=== PATIENT | male | born 1945 | race African-American/Black ===

== ENCOUNTER → 2017-01-16 | Outpatient (CLI) | payer OTHER ==
--- NOTE | 2017-01-16 10:10 | RAD ---
Renal ultrasound 01/16/2017 at 0956 hours Indication: Acute renal failure Comparison: None available Technique: Sonographic imaging of the kidneys was performed utilizing grayscale and color Doppler. Findings: Right kidney measures 10.1 x 5.9 x 6.5 cm. Left kidney measures 11.6 x 4.5 x 5.8 cm. There is normal renal echotexture. No hydronephrosis. No contour deforming renal mass. No renal calculi are identified. Urinary bladder is within normal limits given degree of distention. Impression: No evidence for obstructive uropathy.
== END | disposition home or self-care (01) ==
LOC: US 09:45
PROVIDERS: ATTEND Internal Medicine Nephrology
DX: N17.9 Acute kidney failure, unspecified (principal)
CPT/HCPCS: 76770

== ENCOUNTER 2020-11-16 13:03 | Observation (INO) | payer MEDICARE, OTHER ==
[~2020-11-16] VITALS: Ht 167.6 cm; Wt 85.6 kg
[~2020-11-16 13:03] MED LIST: AMLO-187 PO; ASPI81TA50 PO; HYDR-2145 PO; MULT-445 PO; PRAV40TA2 PO
--- NOTE | 2020-11-16 13:25 | ED.ADGEN ---
General Adult EDM: Chief Complaint: SHORTNESS OF BREATH HPI: HPI: Patient is a 75-year-old male who arrives ambulatory to the emergency department complaining of progressive difficulty breathing since Sunday night. Patient reports initially he had nasal congestion as well as a dry cough and states it is since moved into his chest. Upon arrival the patient has saturations in the mid to high 80s. Upon further questioning the patient states he has smoked intermittently over the past several years however he does not smoke with regularity. The patient states now in addition to having a productive cough as well as shortness of air he has some chest tightness. He states he did complete the vaccine series for coronavirus in September of this year. He denies any fevers or underlying lung disease otherwise. He is awake, alert and uncomfortable appearing Review of Systems: Review of Systems: Constitutional: Denies fever or chills. [] Eyes: Denies change in visual acuity. [] HENT: Reports nasal congestion without sore throat. [] Respiratory: Reports cough with shortness of air. [] Cardiovascular: Reports chest tightness. [] GI: Denies abdominal pain, nausea, vomiting, bloody stools or diarrhea. [] : Denies dysuria. [] Musculoskeletal: Denies back pain or joint pain. [] Integument: Denies rash. [] Neurologic: Denies headache, focal weakness or sensory changes. [] Endocrine: Denies polyuria or polydipsia. [] Lymphatic: Denies swollen glands. [] Psychiatric: Denies depression or anxiety. [] Current Medications: Current Medications Medications (Trade) Dose Ordered [facility] Start Time Stop Time Status Last Admin Dose Admin Albuterol/ Ipratropium (Duoneb) 3 ml 1X ONCE 11/16/20 14:45 11/16/20 14:46 DC 11/16/20 14:56 3 ML Methylprednisolone Sodium Succinate (SOLU-Medrol 125MG VIAL) 125 mg 1X ONCE 11/16/20 13:30 11/16/20 13:31 DC 11/16/20 14:15 125 MG Allergies: Allergies: Allergies Coded Allergies Type Severity Reaction Last Updated Verified No Known Drug Allergies 02/08/18 No Physical Exam: PE: Constitutional: Uncomfortable appearing. Well developed, well nourished, non-t oxic appearance. [] HENT: Normocephalic, atraumatic, bilateral external ears normal, oropharynx moist, no oral exudates, nose normal. [] Eyes: PERRLA, EOMI, conjunctiva normal, no discharge. [] Neck: Normal range of motion, no tenderness, supple, no stridor. [] Cardiovascular:Heart rate regular rhythm, no murmur [] Lungs & Thorax: Expiratory wheezes heard bilaterally with good air movement. [] Abdomen: Bowel sounds normal, soft, no tenderness, no masses, no pulsatile masses. [] Skin: Warm, dry, no erythema, no rash. [] Back: No tenderness, no CVA tenderness. [] Extremities: No tenderness, no cyanosis, no clubbing, ROM intact, no edema. [] Neurologic: Alert and oriented X 3, normal motor function, normal sensory function, no focal deficits noted. [] Psychologic: Affect normal, judgement normal, mood normal. [] Current Patient Data: Labs: Laboratory Tests Test 11/16/20 14:05 White Blood Count 10.8 x10^3/uL (4.0-11.0) Red Blood Count 4.82 x10^6/uL (4.30-5.70) Hemoglobin 14.3 g/dL (13.0-17.5) Hematocrit 43.1 % (39.0-53.0) Mean Corpuscular Volume 89 fL (79-100) Mean Corpuscular Hemoglobin 30 pg (25-35) Mean Corpuscular Hemoglobin Concent 33 g/dL (31-37) Red Cell Distribution Width 13.5 % (11.5-14.5) Platelet Count 203 x10^3/uL (140-400) Neutrophils (%) (Auto) 81 % (31-73) H Lymphocytes (%) (Auto) 8 % (24-48) L Monocytes (%) (Auto) 7 % (0-9) Eosinophils (%) (Auto) 2 % (0-3) Basophils (%) (Auto) 1 % (0-3) Neutrophils # (Auto) 8.8 x10^3/uL (1.8-7.7) H Lymphocytes # (Auto) 0.9 x10^3/uL (1.0-4.8) L Monocytes # (Auto) 0.8 x10^3/uL (0.0-1.1) Eosinophils # (Auto) 0.3 x10^3/uL (0.0-0.7) Basophils # (Auto) 0.1 x10^3/uL (0.0-0.2) Sodium Level 140 mmol/L (136-145) Potassium Level 3.4 mmol/L (3.5-5.1) L Chloride Level 101 mmol/L (98-107) Carbon Dioxide Level 31 mmol/L (21-32) Anion Gap 8 (6-14) Blood Urea Nitrogen 9 mg/dL (8-26) Creatinine 1.0 mg/dL (0.7-1.3) Estimated GFR (Cockcroft-Gault) 88.6 BUN/Creatinine Ratio 9 (6-20) Glucose Level 128 mg/dL (70-99) H Calcium Level 8.8 mg/dL (8.5-10.1) Total Bilirubin 0.9 mg/dL (0.2-1.0) Aspartate Amino Transferase (AST) 23 U/L (15-37) Alanine Aminotransferase (ALT) 36 U/L (16-63) Alkaline Phosphatase 63 U/L (46-116) Troponin I Quantitative < 0.017 ng/mL (0.000-0.055) JC-Dub-M-Type Natriuretic Peptide 42 pg/mL (0-124) Total Protein 7.7 g/dL (6.4-8.2) Albumin 4.1 g/dL (3.4-5.0) Albumin/Globulin Ratio 1.1 (1.0-1.7) Laboratory Tests 11/16/20 14:05 Laboratory Tests 11/16/20 14:05 Vital Signs: Vital Signs Date Time Temp Pulse Resp B/P (MAP) Pulse Ox O2 Delivery O2 Flow Rate FiO2 11/16/20 14:57 92 Nasal Cannula 3.0 11/16/20 14:00 94 11/16/20 13:30 174/98 (123) 11/16/20 13:15 99.1 24 99.1 EKG: EKG: [] EKG was obtained at 1319 hrs. and revealed a normal sinus rhythm with a ventricular rate of 90 bpm. There is left axis deviation present. There are no acute ST/T wave changes to denote ischemia. Heart Score: C/O Chest Pain: Yes HEART Score for Chest Pain: HEART Score for Chest Pain Response (Comments) Value History Moderately Suspicious 1 ECG Normal 0 Age > 65 2 Risk Factors 1 or 2 Risk Factors 1 Troponin < Normal Limit 0 Total 4 Risk Factors: Risk Factors: DM, Current or recent (<one month) smoker, HTN, HLP, family history of CAD, obesity. Risk Scores: Score 0 - 3: 2.5% MACE over next 6 weeks - Discharge Home Score 4 - 6: 20.3% MACE over next 6 weeks - Admit for Clinical Observation Score 7 - 10: 72.7% MACE over next 6 weeks - Early Invasive Strategies Radiology/Procedures: Radiology/Procedures: [] Impression: [facility] [address] [place], [place] [id number] IMAGING REPORT Signed PATIENT: ANNALEE HUANG ACCOUNT: [id number] : 1945 LOCATION: ER AGE: 75 SEX: M EXAM STATUS: REG ER ORD. PHYSICIAN: MARIANO BURR DO REASON: SOA PROCEDURE: PORTABLE CHEST 1V XR CHEST 1V History: Reason: SOA / Spl. Instructions: / History: Comparison: None. Findings: Low lung volumes. No consolidation or pleural effusion. Normal heart size. No pneumothorax. Impression: 1. No acute cardiopulmonary process. Electronically signed by: Rachid Dickinson DO (11/16/2020 1:46 PM) [id number] DICTATED and SIGNED BY: RACHID DICKINSON DO DATE: 11/16/20 [id number] Course & Med Decision Making: Course & Med Decision Making Pertinent Labs and Imaging studies reviewed. (See chart for details) The patient remains awake, alert and his work of breathing has improved. Nonetheless the patient still remains hypoxic at room air. I think the likelihood of the patient having Covid 19 is very minimal right now as the patient has completed the vaccination series 2 months previously. Rather I question whether or not the patient has undiagnosed COPD which may be complicating an upper respiratory infection. Given this information the patient will be admitted to the hospital for further evaluation and treatment. He understands this and has agreed. He is nontoxic-appearing and stable for transport to the [facility] Joaquín Disclaimer: Joaquín Disclaimer: This electronic medical record was generated, in whole or in part, using a voice recognition dictation system. Departure Departure Impression: Primary Impression: Hypoxia Additional Impression: Person under investigation for COVID-19 Disposition: ADMITTED INPATIENT Admitting Physician: DARLIN Condition: STABLE Referrals: AYAKA SANDOVAL MD (PCP) Problem Qualifiers MARIANO BURR DO Nov 16, 2020 13:25
[2020-11-16] MEDS ORDERED: methylPREDNISolone SOD SUCC PF 125 MG/2 ML VIAL. IV ONE (13:30)
--- NOTE | 2020-11-16 13:49 | RAD ---
XR CHEST 1V History: Reason: SOA / Spl. Instructions: / History: Comparison: None. Findings: Low lung volumes. No consolidation or pleural effusion. Normal heart size. No pneumothorax. Impression: 1. No acute cardiopulmonary process. Electronically signed by: Rachid Dickinson DO (11/16/2020 1:46 PM) [id number]
[2020-11-16 14:24] LABS: BASO # 0.1 x10^3/uL (0.0-0.2); BASO % 1 % (0-3); EOS # 0.3 x10^3/uL (0.0-0.7); EOS % 2 % (0-3); HEMATOCRIT 43.1 % (39.0-53.0); HEMOGLOBIN 14.3 g/dL (13.0-17.5); LYMPH # 0.9 x10^3/uL (1.0-4.8); LYMPH % 8 % (24-48); MEAN CORPUSCULAR HEMOGLOBIN 30 pg (25-35); MEAN CORPUSCULAR HGB CONC 33 g/dL (31-37); MEAN CORPUSCULAR VOLUME 89 fL (79-100); MONO # 0.8 x10^3/uL (0.0-1.1); MONO % 7 % (0-9); NEUT # 8.8 x10^3/uL (1.8-7.7); NEUT % 81 % (31-73); PLATELET COUNT 203 x10^3/uL (140-400); RED BLOOD COUNT 4.82 x10^6/uL (4.30-5.70); RED CELL DISTRIBUTION WIDTH 13.5 % (11.5-14.5); WHITE BLOOD COUNT 10.8 x10^3/uL (4.0-11.0)
[2020-11-16 14:39] LABS: CALCIUM 8.8 mg/dL (8.5-10.1); GFR 88.6; POTASSIUM 3.4 mmol/L (3.5-5.1)
[2020-11-16] MEDS ORDERED: IPRATRPIUM/ALBUTEROL 0.5/2.5MG 3 ML NEBU. NEB ONE (14:45)
[2020-11-16 14:46] LABS: ALBUMIN 4.1 g/dL (3.4-5.0); ALBUMIN/GLOBULIN RATIO 1.1 (1.0-1.7); TOTAL BILIRUBIN 0.9 mg/dL (0.2-1.0); TOTAL PROTEIN 7.7 g/dL (6.4-8.2)
--- NOTE | 2020-11-16 14:46 | PDOC1 ---
History and Physical Date of Admission Date of Admission DATE: 11/16/20 TIME: 14:46 Identification/Chief Complaint Chief Complaint shortness of air in a smoker with chest tightness worse x 3 days History of Present Illness History of Present Illness 75-year-old male who arrives to the emergency department complaining of progressive difficulty breathing since Sunday night. Patient reports dry cough and states it is since moved into his chest. Upon arrival the patient has saturations in the mid to high 80s. 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 he did complete the vaccine series for coronavirus in September of this year impression // Hypoxic respiratory failure, acute Acute exac of COPD low porobbility PUI COVID-19, but has had both covid vaccines in 2020 / Chest tightness due to hypoxia, IHD not excluded Tobacco abuse disorder // obesity plan == ADMITTED // o2 support CONSULT PULMONARY IV steroid taper serial troponin // consult Cardiology .// iv zithromax, rocephin, emperic // dvt prophylaxis est LOS 72 HRS Past Medical History Cardiovascular: Hyperlipidemia Pulmonary: COPD Infectious disease: No pertinent hx Family History Family History: Hypertension Family History: Parent Social History Smoke: <1 pack per day ALCOHOL: occassional Drugs: None Current Medications Current Medications Current Medications Methylprednisolone Sodium Succinate (SOLU-Medrol 125MG VIAL) 125 mg 1X ONCE IV Last administered on 11/16/20at 14:15; Start 11/16/20 at 13:30; Stop 11/16/20 at 13:31; Status DC Albuterol/ Ipratropium (Duoneb) 3 ml 1X ONCE NEB ; Start 11/16/20 at 14:45; Stop 11/16/20 at 14:46 Active Scripts Active Reported Hydrochlorothiazide Tablet (Hydrochlorothiazide) 25 Mg Tablet 1 Tab PO DAILY Multivitamins (Multivitamin) 1 Each Tablet 1 Tab PO DAILY Amlodipine Besylate 10 Mg Tablet 10 Mg PO DAILY Aspir-Low (Aspirin) 81 Mg Tablet. 1 Tab PO DAILY Pravastatin Sodium 40 Mg Tablet 1 Tab PO QHS Allergies Allergies: Coded Allergies: No Known Drug Allergies (Unverified , 02/08/18) ROS Review of System 14 pt ros otherwise neg General: YES: Fatigue, Malaise PSYCHOLOGICAL ROS: No: Anxiety, Behavioral Disorder, Concentration difficultie, Decreased libido, Depression, Disorientation, Hallucinations, Hostility, Irritablity, Memory difficulties, Mood Swings, Obsessive thoughts, Physical abuse, Sexual abuse, Sleep disturbances, Suicidal ideation, Other Eyes: No Blurry vision, No Decreased vision, No Double vision, No Dry eyes, No Excessive tearing, No Eye Pain, No Itchy Eyes, No Loss of vision, No Photophobia, No Scotomata, No Uses contacts, No Uses glasses, No Other HEENT: No: Heacaches, Visual Changes, Hearing change, Nasal congestion, Nasal discharge, Oral lesions, Sinus pain, Sore Throat, Epistaxis, Sneezing, Snoring, Tinnitus, Vertigo, Vocal changes, Other ALLERGY AND IMMUNOLOGY: No: Hives, Insect Bite Sensitivity, Itchy/Watery Eyes, Nasal Congestion, Post Nasal Drip, Seasonal Allergies, Other Hematological and Lymphatic: No: Bleeding Problems, Blood Clots, Blood Transfusions, Brusing, Night Sweats, Pallor, Swollen Lymph Nodes, Other ENDOCRINE: No: Breast Changes, Galactorrhea, Hair Pattern Changes, Hot Flashes, Malaise/lethargy, Mood Swings, Palpitations, Polydipsia/polyuria, Skin Changes, Temperature Intolerance, Unexpected Weight Changes, Other Breast: No New/Changing Breast Lumps, No Nipple changes, No Nipple discharge, No Other Respiratory: YES: Cough, Shortness of breath, SOB with excertion, Sputum Changes Cardiovascular: yes Other (chest tightness) Gastrointestinal: No Nausea, No Vomiting, No Abdominal Pain, No Diarrhea, No Constipation, No Melena, No Hematochezia, No Other Genitourinary: No Dysuria, No Frequency, No Incontinence, No Hematuria, No Retention, No Discharge, No Urgency, No Pain, No Flank Pain, No Other, No , No , No , No , No , No , No Musculoskeletal: No Gait Disturbance, No Joint Pain, No Joint Stiffness, No Joint Swelling, No Muscle Pain, No Muscular Weakness, No Pain In:, No Swelling In:, No Other Neurological: No Behavorial Changes, No Bowel/Bladder ControlChng, No C onfusion, No Dizziness, No Gait Disturbance, No Headaches, No Impaired Coord/balance, No Memory Loss, No Numbness/Tingling, No Seizures, No Speech Problems, No Tremors, No Visual Changes, No Weakness, No Other Skin: No Dry Skin, No Eczema, No Hair Changes, No Lumps, No Mole Changes, No Mottling, No Nail Changes, No Pruritus, No Rash, No Skin Lesion Changes, No Other, No Acne Physical Exam General: Alert, Oriented X3, Cooperative, No acute distress, mild distress HEENT: Atraumatic, EOMI, Mucous membr. moist/pink Lungs: Other (diminished few exp wheezes) Heart: S1S2, RRR, no thrills, no rubs, no gallops, no murmurs, no jug vein distention Breasts: Not examined Abdomen: Normal bowel sounds, Soft Rectal Exam: not examined PELVIC: Examination not indicated Extremities: No cyanosis Neuro: Normal speech, Strength at 5/5 X4 ext, Sensation intact, Cranial nerves 3-12 NL Psych/Mental Status: Mental status NL, Mood NL Vitals Vitals Vital Signs Date Time Temp Pulse Resp B/P (MAP) Pulse Ox O2 Delivery O2 Flow Rate FiO2 11/16/20 14:00 94 94 Nasal Cannula 3.0 11/16/20 13:30 174/98 (123) 11/16/20 13:15 99.1 24 99.1 Labs Labs Laboratory Tests Test 11/16/20 14:05 White Blood Count 10.8 x10^3/uL (4.0-11.0) Red Blood Count 4.82 x10^6/uL (4.30-5.70) Hemoglobin 14.3 g/dL (13.0-17.5) Hematocrit 43.1 % (39.0-53.0) Mean Corpuscular Volume 89 fL (79-100) Mean Corpuscular Hemoglobin 30 pg (25-35) Mean Corpuscular Hemoglobin Concent 33 g/dL (31-37) Red Cell Distribution Width 13.5 % (11.5-14.5) Platelet Count 203 x10^3/uL (140-400) Neutrophils (%) (Auto) 81 % (31-73) Lymphocytes (%) (Auto) 8 % (24-48) Monocytes (%) (Auto) 7 % (0-9) Eosinophils (%) (Auto) 2 % (0-3) Basophils (%) (Auto) 1 % (0-3) Neutrophils # (Auto) 8.8 x10^3/uL (1.8-7.7) Lymphocytes # (Auto) 0.9 x10^3/uL (1.0-4.8) Monocytes # (Auto) 0.8 x10^3/uL (0.0-1.1) Eosinophils # (Auto) 0.3 x10^3/uL (0.0-0.7) Basophils # (Auto) 0.1 x10^3/uL (0.0-0.2) Sodium Level 140 mmol/L (136-145) Potassium Level 3.4 mmol/L (3.5-5.1) Chloride Level 101 mmol/L (98-107) Carbon Dioxide Level 31 mmol/L (21-32) Anion Gap 8 (6-14) Blood Urea Nitrogen 9 mg/dL (8-26) Creatinine 1.0 mg/dL (0.7-1.3) Estimated GFR (Cockcroft-Gault) 88.6 BUN/Creatinine Ratio 9 (6-20) Glucose Level 128 mg/dL (70-99) Calcium Level 8.8 mg/dL (8.5-10.1) Laboratory Tests Test 11/16/20 14:05 White Blood Count 10.8 x10^3/uL (4.0-11.0) Red Blood Count 4.82 x10^6/uL (4.30-5.70) Hemoglobin 14.3 g/dL (13.0-17.5) Hematocrit 43.1 % (39.0-53.0) Mean Corpuscular Volume 89 fL (79-100) Mean Corpuscular Hemoglobin 30 pg (25-35) Mean Corpuscular Hemoglobin Concent 33 g/dL (31-37) Red Cell Distribution Width 13.5 % (11.5-14.5) Platelet Count 203 x10^3/uL (140-400) Neutrophils (%) (Auto) 81 % (31-73) Lymphocytes (%) (Auto) 8 % (24-48) Monocytes (%) (Auto) 7 % (0-9) Eosinophils (%) (Auto) 2 % (0-3) Basophils (%) (Auto) 1 % (0-3) Neutrophils # (Auto) 8.8 x10^3/uL (1.8-7.7) Lymphocytes # (Auto) 0.9 x10^3/uL (1.0-4.8) Monocytes # (Auto) 0.8 x10^3/uL (0.0-1.1) Eosinophils # (Auto) 0.3 x10^3/uL (0.0-0.7) Basophils # (Auto) 0.1 x10^3/uL (0.0-0.2) Sodium Level 140 mmol/L (136-145) Potassium Level 3.4 mmol/L (3.5-5.1) Chloride Level 101 mmol/L (98-107) Carbon Dioxide Level 31 mmol/L (21-32) Anion Gap 8 (6-14) Blood Urea Nitrogen 9 mg/dL (8-26) Creatinine 1.0 mg/dL (0.7-1.3) Estimated GFR (Cockcroft-Gault) 88.6 BUN/Creatinine Ratio 9 (6-20) Glucose Level 128 mg/dL (70-99) Calcium Level 8.8 mg/dL (8.5-10.1) Images Images [facility] Accession Number: [id number] . 01 Material submitted: . TRANSVERSE COLON POLYP BX . 01 Clinical history: . CRC screening . 02 Diagnosis: Colon biopsy, transverse colon polyp: - Tubular adenoma. QTP/02/11/2018 . 02 Comment: There is no high-grade dysplasia or evidence of malignancy. (JPM:pit 02/11/2018) . 02 Electronically signed: . Mat Finnegan MD, Pathologist NPI- [id number] . 01 Gross description: . Received in formalin labeled "Annalee Williamson, transverse colon polyp BX," is a single segment of scott soft tissue measuring 0.3 cm in maximum dimension. The specimen is entirely submitted in cassette A1. (TSD; 02/08/2018) TOB/TOB . 02 Pathologist provided ICD-10: D12.3 . 02 CPT . 546848 PATIENT: ANNALEE WILLIAMSON ACCOUNT: [id number] : 1945 LOCATION: ER AGE: 75 SEX: M EXAM STATUS: REG ER ORD. PHYSICIAN: MARIANO BURR DO REASON: SOA PROCEDURE: PORTABLE CHEST 1V XR CHEST 1V History: Reason: SOA / Spl. Instructions: / History: Comparison: None. Findings: Low lung volumes. No consolidation or pleural effusion. Normal heart size. No pneumothorax. Impression: 1. No acute cardiopulmonary process. Electronically signed by: Rachid Dickinson DO (11/16/2020 1:46 PM) [id number] DICTATED and SIGNED BY: RACHID DICKINSON DO DATE: 11/16/20 [id number] VTE Prophylaxis Ordered VTE Prophylaxis Devices: No VTE Pharmacological Prophylaxi: Yes Assessment/Plan Assessment/Plan Impression: Hypoxic respiratory failure, acute Acute exac of COPD PUI COVID-19, but has had both covid vaccines in 2020 Chest tightness due to hypoxia, IHD not excluded Tobacco abuse disorder obesity PLAN ADMITTED o2 support CONSULT PULMONARY IV steroid taper v/q scan frida tonight serial trolonin consult Cardiology iv zithromax, rocephin, emperic dvt prophylaxis GI prophylaxis home meds consider out patient stress testing D/W ER 74 MIN pt exam, chart review, > 50% of time spent with exam, chart review, pt care coordination Justifications for Admission Other Justification GEORGI TAO MD Nov 16, 2020 14:46
[2020-11-16] MEDS ORDERED: ONDANSETRON PF 4 MG/2 ML VIAL. IV PRN ×2 (15:00→17:30)
--- NOTE | 2020-11-16 16:34 | EKG ---
[facility] [address] [place] [address] Test Date: 2020-11-16 Test Time: 13:19:57 Pat Name: ANNALEE HUANG Department: Room: Gender: M [employer]: : 1945 Requested By: MARIANO BURR Order Number: [id number] Reading MD: Measurements Intervals [place] Rate: 90 P: 61 NC: 164 QRS: -6 QRSD: 82 T: 60 QT: 334 QTc: 412 Interpretive Statements SINUS RHYTHM LEFTWARD AXIS OTHERWISE NORMAL ECG RI6.02 No previous ECG available for comparison
[2020-11-16 17:30] VITALS: BP 155/87
[2020-11-16] MEDS ORDERED: SODIUM PHOSPHATES 19/7GM 133 ML ENEMA. PR PRN (17:30)
[2020-11-16] MEDS ORDERED: diphenhydrAMINE 50 MG/ML VIAL IVP PRN (17:30)
[2020-11-16] MEDS ORDERED: cloNIDine HCL 0.1 MG TABLET PO PRN (17:30)
[2020-11-16] MEDS ORDERED: 0.9 % SODIUM CHLORIDE 10 ML DISP.SYRIN. IV PRN (17:30)
[2020-11-16] MEDS ORDERED: ACETAMINOPHEN 325 MG TABLET. PO PRN (17:30)
[2020-11-16] MEDS ORDERED: DOCUSATE SODIUM 100 MG CAPSULE. PO PRN (17:30)
[2020-11-16] MEDS ORDERED: guaiFENesin ORAL 200 MG/10 ML LIQUID. PO PRN (17:30)
[2020-11-16] MEDS ORDERED: MAG HYDROX/ALUMINUM HYD/SIMETH 30 ML ORAL.SUSP PO PRN (17:30)
[2020-11-16] MEDS ORDERED: AZITHRMYCN 500MG IVPB FOR OMNI 250 ML IV ONE (17:45)
[2020-11-16] MEDS: IPRATRPIUM/ALBUTEROL 0.5/2.5MG 3 ML NEBU. NEB SCH ×2 (18:00→22:00)
[2020-11-16] MEDS ORDERED: AZITHROMYCIN 500 MG in IV NORMAL SALINE 250ML 250 ML IV ONE (18:00)
[2020-11-16] MEDS ORDERED: POTASSIUM CHLORIDE 20 MEQ TABLET.ER. PO ONE (18:00)
[2020-11-16 18:15] LABS: BASE EXCESS COOX 1 mmol/L (-3-3); HCO3 COOX 26 mmol/L (21-28); METHEMOGLOBIN 0.5 % (0.0-1.9); PCO2 COOX 42 mmHg (35-46); PO2 COOX 67 mmHg (65-108); SAT O2 COOX 94 % (92-99)
[2020-11-16 19:00] VITALS: BP 151/96
[2020-11-16] MEDS: BUDESONIDE 0.5 MG/2 ML NEBU. NEB SCH (20:00)
[2020-11-16] MEDS: ATORVASTATIN CALCIUM 10 MG TABLET. PO SCH (21:52)
[2020-11-16] MEDS: methylPREDNISolone SOD SUCC PF 125 MG/2 ML VIAL. IV SCH (21:53)
[2020-11-16] MEDS: cefTRIAXone IV Push 1 GM VIAL. IVP SCH (21:58)
[2020-11-16] MEDS: ENOXAPARIN 40 MG/0.4 ML SYRINGE. SQ SCH (21:59)
[2020-11-16 23:00] VITALS: BP 160/109
[2020-11-17] MEDS: IPRATRPIUM/ALBUTEROL 0.5/2.5MG 3 ML NEBU. NEB SCH ×6 (02:00→22:00)
[2020-11-17 03:00] VITALS: BP 142/82
[2020-11-17] MEDS: methylPREDNISolone SOD SUCC PF 125 MG/2 ML VIAL. IV SCH ×3 (06:09→21:17)
[2020-11-17] MEDS: BUDESONIDE 0.5 MG/2 ML NEBU. NEB SCH ×2 (06:37→20:25)
[2020-11-17 07:00] VITALS: BP 139/83
[2020-11-17 07:29] LABS: BASO % 0 % (0-3); EOS % 0 % (0-3); LYMPH # 0.5 x10^3/uL (1.0-4.8); LYMPH % 4 % (24-48); MEAN CORPUSCULAR HEMOGLOBIN 29 pg (25-35); MEAN CORPUSCULAR HGB CONC 32 g/dL (31-37); MEAN CORPUSCULAR VOLUME 90 fL (79-100); MONO # 0.2 x10^3/uL (0.0-1.1); MONO % 1 % (0-9); NEUT # 11.5 x10^3/uL (1.8-7.7); NEUT % 94 % (31-73); PLATELET COUNT 208 x10^3/uL (140-400); RED BLOOD COUNT 4.89 x10^6/uL (4.30-5.70); RED CELL DISTRIBUTION WIDTH 13.6 % (11.5-14.5); WHITE BLOOD COUNT 12.2 x10^3/uL (4.0-11.0)
[2020-11-17 07:37] LABS: CALCIUM 8.5 mg/dL (8.5-10.1); GFR 88.6; POTASSIUM 4.3 mmol/L (3.5-5.1)
--- NOTE | 2020-11-17 08:17 | PDOC ---
[employer] PROGRESS NOTE Date of Service DOS: DATE: 11/17/20 TIME: 08:15 Chief Complaint Chief Complaint Respiratory failure Mild tobacco exposure (he he states he did not smoke a lot?) History of dust exposure History of chemical exposure History of asbestos exposure Hyperlipidemia COPD History of Present Illness History of Present Illness 11/18/2019 Patient seen and examined You can hear audible wheezes at the bedside He is on oxygen per nasal cannula He appears depressed and weak Soft-spoken Chart reviewed Discussed with RN ALE pending Cardiology and pulmonary are consulted Vitals/I&O Vitals/I&O: Vital Signs Date Time Temp Pulse Resp B/P (MAP) Pulse Ox O2 Delivery O2 Flow Rate FiO2 11/17/20 07:00 98.3 78 17 139/83 (101) 95 Room Air 98.3 11/17/20 03:00 4.0 I & O 11/16/20 11/16/20 11/17/20 15:00 23:00 07:00 Intake Total 250 ml Output Total 400 ml 550 ml Balance -150 ml -550 ml Physical Exam General: Alert, Oriented X3, Cooperative, No acute distress, mild distress Heart: Regular rate Lungs: Wheezing, Crackles Abdomen: Normal bowel sounds, Soft Extremities: No cyanosis Skin: No rashes Labs Labs: Laboratory Tests Test 11/16/20 14:05 11/16/20 18:15 11/16/20 18:45 11/17/20 07:10 White Blood Count 10.8 x10^3/uL (4.0-11.0) 12.2 x10^3/uL (4.0-11.0) Red Blood Count 4.82 x10^6/uL (4.30-5.70) 4.89 x10^6/uL (4.30-5.70) Hemoglobin 14.3 g/dL (13.0-17.5) 14.0 g/dL (13.0-17.5) Hematocrit 43.1 % (39.0-53.0) 44.0 % (39.0-53.0) Mean Corpuscular Volume 89 fL (79-100) 90 fL (79-100) Mean Corpuscular Hemoglobin 30 pg (25-35) 29 pg (25-35) Mean Corpuscular Hemoglobin Concent 33 g/dL (31-37) 32 g/dL (31-37) Red Cell Distribution Width 13.5 % (11.5-14.5) 13.6 % (11.5-14.5) Platelet Count 203 x10^3/uL (140-400) 208 x10^3/uL (140-400) Neutrophils (%) (Auto) 81 % (31-73) 94 % (31-73) Lymphocytes (%) (Auto) 8 % (24-48) 4 % (24-48) Monocytes (%) (Auto) 7 % (0-9) 1 % (0-9) Eosinophils (%) (Auto) 2 % (0-3) 0 % (0-3) Basophils (%) (Auto) 1 % (0-3) 0 % (0-3) Neutrophils # (Auto) 8.8 x10^3/uL (1.8-7.7) 11.5 x10^3/uL (1.8-7.7) Lymphocytes # (Auto) 0.9 x10^3/uL (1.0-4.8) 0.5 x10^3/uL (1.0-4.8) Monocytes # (Auto) 0.8 x10^3/uL (0.0-1.1) 0.2 x10^3/uL (0.0-1.1) Eosinophils # (Auto) 0.3 x10^3/uL (0.0-0.7) 0.0 x10^3/uL (0.0-0.7) Basophils # (Auto) 0.1 x10^3/uL (0.0-0.2) 0.0 x10^3/uL (0.0-0.2) Sodium Level 140 mmol/L (136-145) 141 mmol/L (136-145) Potassium Level 3.4 mmol/L (3.5-5.1) 4.3 mmol/L (3.5-5.1) Chloride Level 101 mmol/L (98-107) 104 mmol/L (98-107) Carbon Dioxide Level 31 mmol/L (21-32) 31 mmol/L (21-32) Anion Gap 8 (6-14) 6 (6-14) Blood Urea Nitrogen 9 mg/dL (8-26) 13 mg/dL (8-26) Creatinine 1.0 mg/dL (0.7-1.3) 1.0 mg/dL (0.7-1.3) Estimated GFR (Cockcroft-Gault) 88.6 88.6 BUN/Creatinine Ratio 9 (6-20) Glucose Level 128 mg/dL (70-99) 157 mg/dL (70-99) Calcium Level 8.8 mg/dL (8.5-10.1) 8.5 mg/dL (8.5-10.1) Total Bilirubin 0.9 mg/dL (0.2-1.0) Aspartate Amino Transf (AST/SGOT) 23 U/L (15-37) Alanine Aminotransferase (ALT/SGPT) 36 U/L (16-63) Alkaline Phosphatase 63 U/L (46-116) Troponin I Quantitative < 0.017 ng/mL (0.000-0.055) < 0.017 ng/mL (0.000-0.055) QO-Vpp-S-Type Natriuretic Peptide 42 pg/mL (0-124) Total Protein 7.7 g/dL (6.4-8.2) Albumin 4.1 g/dL (3.4-5.0) Albumin/Globulin Ratio 1.1 (1.0-1.7) O2 Saturation 94 % (92-99) Arterial Blood pH 7.41 (7.35-7.45) Arterial Blood pCO2 at Patient Temp 42 mmHg (35-46) Arterial Blood pO2 at Patient Temp 67 mmHg (65-108) Arterial Blood HCO3 26 mmol/L (21-28) Arterial Blood Base Excess 1 mmol/L (-3-3) Oxyhemoglobin 93.0 % Methemoglobin 0.5 % (0.0-1.9) Carbon Monoxide, Quantitative 0.7 % (0.0-1.9) FiO2 3.5l nc D-Dimer (Skylar) 0.37 ug/mlFEU (0.00-0.50) Assessment and Plan Assessmemt and Plan Problems Medical Problems: (1) Hypoxia Status: Acute (2) Person under investigation for COVID-19 Status: Acute Respiratory failure Mild tobacco exposure (he he states he did not smoke a lot?) History of dust exposure History of chemical exposure History of asbestos exposure Hyperlipidemia COPD Plan Await VQ scan Continue IV Solu-Medrol Continue IV Rocephin Oxygen per nasal cannula Duo nebs Await pulmonary input Await cardiology input Trend labs Home meds DVT prophylaxis Full code Prognosis guarded Comment Review of Relevant I have reviewed the following items reyna (where applicable) has been applied. Medications: Current Medications Medications (Trade) Dose Ordered Sig/Jeet Route PRN Reason Start Time Stop Time Status Last Admin Dose Admin Methylprednisolone Sodium Succinate (SOLU-Medrol 125MG VIAL) 125 mg 1X ONCE IV 11/16/20 13:30 11/16/20 13:31 DC 11/16/20 14:15 Albuterol/ Ipratropium (Duoneb) 3 ml 1X ONCE NEB 11/16/20 14:45 11/16/20 14:46 DC 11/16/20 14:56 Clonidine HCl (Catapres) 0.1 mg PRN Q6HRS PRN PO SBP>160 OR DBP>90 11/16/20 17:30 11/17/20 01:33 Enoxaparin Sodium (Lovenox 40mg Syringe) 40 mg Q24H SQ 11/16/20 21:00 11/16/20 21:59 Ceftriaxone Sodium (Rocephin) 1 gm Q24H IVP 11/16/20 18:00 11/16/20 21:58 Potassium Chloride (Klor-Con) 40 meq 1X ONCE PO 11/16/20 18:00 11/16/20 18:01 DC 11/16/20 21:51 Atorvastatin Calcium (Lipitor) 10 mg QHS PO 11/16/20 21:00 11/16/20 21:52 Methylprednisolone Sodium Succinate (SOLU-Medrol 125MG VIAL) 80 mg Q8HRS IV 11/16/20 22:00 11/17/20 06:09 Azithromycin 500 mg/Sodium Chloride 250 ml @ 250 mls/hr 1X ONCE IV 11/16/20 18:00 11/16/20 18:59 DC 11/16/20 21:57 Justifications for Admission Other Justification acute hypoxic resp failure NIKHIL LYNN III DO Nov 17, 2020 08:17
--- NOTE | 2020-11-17 09:09 | PDOC ---
PULMONARY PROGRESS NOTES DATE: 11/17/20 TIME: 09:09 Vitals Vital Signs Date Time Temp Pulse Resp B/P (MAP) Pulse Ox O2 Delivery O2 Flow Rate FiO2 11/17/20 07:00 98.3 78 17 139/83 (101) 95 Room Air 98.3 11/17/20 03:00 4.0 Lungs: Wheezing, Crackles Labs Laboratory Tests Test 11/16/20 14:05 11/16/20 18:15 11/16/20 18:45 11/17/20 07:10 White Blood Count 10.8 x10^3/uL (4.0-11.0) 12.2 x10^3/uL (4.0-11.0) Red Blood Count 4.82 x10^6/uL (4.30-5.70) 4.89 x10^6/uL (4.30-5.70) Hemoglobin 14.3 g/dL (13.0-17.5) 14.0 g/dL (13.0-17.5) Hematocrit 43.1 % (39.0-53.0) 44.0 % (39.0-53.0) Mean Corpuscular Volume 89 fL (79-100) 90 fL (79-100) Mean Corpuscular Hemoglobin 30 pg (25-35) 29 pg (25-35) Mean Corpuscular Hemoglobin Concent 33 g/dL (31-37) 32 g/dL (31-37) Red Cell Distribution Width 13.5 % (11.5-14.5) 13.6 % (11.5-14.5) Platelet Count 203 x10^3/uL (140-400) 208 x10^3/uL (140-400) Neutrophils (%) (Auto) 81 % (31-73) 94 % (31-73) Lymphocytes (%) (Auto) 8 % (24-48) 4 % (24-48) Monocytes (%) (Auto) 7 % (0-9) 1 % (0-9) Eosinophils (%) (Auto) 2 % (0-3) 0 % (0-3) Basophils (%) (Auto) 1 % (0-3) 0 % (0-3) Neutrophils # (Auto) 8.8 x10^3/uL (1.8-7.7) 11.5 x10^3/uL (1.8-7.7) Lymphocytes # (Auto) 0.9 x10^3/uL (1.0-4.8) 0.5 x10^3/uL (1.0-4.8) Monocytes # (Auto) 0.8 x10^3/uL (0.0-1.1) 0.2 x10^3/uL (0.0-1.1) Eosinophils # (Auto) 0.3 x10^3/uL (0.0-0.7) 0.0 x10^3/uL (0.0-0.7) Basophils # (Auto) 0.1 x10^3/uL (0.0-0.2) 0.0 x10^3/uL (0.0-0.2) Sodium Level 140 mmol/L (136-145) 141 mmol/L (136-145) Potassium Level 3.4 mmol/L (3.5-5.1) 4.3 mmol/L (3.5-5.1) Chloride Level 101 mmol/L (98-107) 104 mmol/L (98-107) Carbon Dioxide Level 31 mmol/L (21-32) 31 mmol/L (21-32) Anion Gap 8 (6-14) 6 (6-14) Blood Urea Nitrogen 9 mg/dL (8-26) 13 mg/dL (8-26) Creatinine 1.0 mg/dL (0.7-1.3) 1.0 mg/dL (0.7-1.3) Estimated GFR (Cockcroft-Gault) 88.6 88.6 BUN/Creatinine Ratio 9 (6-20) Glucose Level 128 mg/dL (70-99) 157 mg/dL (70-99) Calcium Level 8.8 mg/dL (8.5-10.1) 8.5 mg/dL (8.5-10.1) Total Bilirubin 0.9 mg/dL (0.2-1.0) Aspartate Amino Transf (AST/SGOT) 23 U/L (15-37) Alanine Aminotransferase (ALT/SGPT) 36 U/L (16-63) Alkaline Phosphatase 63 U/L (46-116) Troponin I Quantitative < 0.017 ng/mL (0.000-0.055) < 0.017 ng/mL (0.000-0.055) BC-Dnj-L-Type Natriuretic Peptide 42 pg/mL (0-124) Total Protein 7.7 g/dL (6.4-8.2) Albumin 4.1 g/dL (3.4-5.0) Albumin/Globulin Ratio 1.1 (1.0-1.7) O2 Saturation 94 % (92-99) Arterial Blood pH 7.41 (7.35-7.45) Arterial Blood pCO2 at Patient Temp 42 mmHg (35-46) Arterial Blood pO2 at Patient Temp 67 mmHg (65-108) Arterial Blood HCO3 26 mmol/L (21-28) Arterial Blood Base Excess 1 mmol/L (-3-3) Oxyhemoglobin 93.0 % Methemoglobin 0.5 % (0.0-1.9) Carbon Monoxide, Quantitative 0.7 % (0.0-1.9) FiO2 3.5l nc D-Dimer (Skylar) 0.37 ug/mlFEU (0.00-0.50) Laboratory Tests Test 11/16/20 14:05 11/16/20 18:15 11/16/20 18:45 11/17/20 07:10 White Blood Count 10.8 x10^3/uL (4.0-11.0) 12.2 x10^3/uL (4.0-11.0) Red Blood Count 4.82 x10^6/uL (4.30-5.70) 4.89 x10^6/uL (4.30-5.70) Hemoglobin 14.3 g/dL (13.0-17.5) 14.0 g/dL (13.0-17.5) Hematocrit 43.1 % (39.0-53.0) 44.0 % (39.0-53.0) Mean Corpuscular Volume 89 fL (79-100) 90 fL (79-100) Mean Corpuscular Hemoglobin 30 pg (25-35) 29 pg (25-35) Mean Corpuscular Hemoglobin Concent 33 g/dL (31-37) 32 g/dL (31-37) Red Cell Distribution Width 13.5 % (11.5-14.5) 13.6 % (11.5-14.5) Platelet Count 203 x10^3/uL (140-400) 208 x10^3/uL (140-400) Neutrophils (%) (Auto) 81 % (31-73) 94 % (31-73) Lymphocytes (%) (Auto) 8 % (24-48) 4 % (24-48) Monocytes (%) (Auto) 7 % (0-9) 1 % (0-9) Eosinophils (%) (Auto) 2 % (0-3) 0 % (0-3) Basophils (%) (Auto) 1 % (0-3) 0 % (0-3) Neutrophils # (Auto) 8.8 x10^3/uL (1.8-7.7) 11.5 x10^3/uL (1.8-7.7) Lymphocytes # (Auto) 0.9 x10^3/uL (1.0-4.8) 0.5 x10^3/uL (1.0-4.8) Monocytes # (Auto) 0.8 x10^3/uL (0.0-1.1) 0.2 x10^3/uL (0.0-1.1) Eosinophils # (Auto) 0.3 x10^3/uL (0.0-0.7) 0.0 x10^3/uL (0.0-0.7) Basophils # (Auto) 0.1 x10^3/uL (0.0-0.2) 0.0 x10^3/uL (0.0-0.2) Sodium Level 140 mmol/L (136-145) 141 mmol/L (136-145) Potassium Level 3.4 mmol/L (3.5-5.1) 4.3 mmol/L (3.5-5.1) Chloride Level 101 mmol/L (98-107) 104 mmol/L (98-107) Carbon Dioxide Level 31 mmol/L (21-32) 31 mmol/L (21-32) Anion Gap 8 (6-14) 6 (6-14) Blood Urea Nitrogen 9 mg/dL (8-26) 13 mg/dL (8-26) Creatinine 1.0 mg/dL (0.7-1.3) 1.0 mg/dL (0.7-1.3) Estimated GFR (Cockcroft-Gault) 88.6 88.6 BUN/Creatinine Ratio 9 (6-20) Glucose Level 128 mg/dL (70-99) 157 mg/dL (70-99) Calcium Level 8.8 mg/dL (8.5-10.1) 8.5 mg/dL (8.5-10.1) Total Bilirubin 0.9 mg/dL (0.2-1.0) Aspartate Amino Transf (AST/SGOT) 23 U/L (15-37) Alanine Aminotransferase (ALT/SGPT) 36 U/L (16-63) Alkaline Phosphatase 63 U/L (46-116) Troponin I Quantitative < 0.017 ng/mL (0.000-0.055) < 0.017 ng/mL (0.000-0.055) KJ-Ezs-T-Type Natriuretic Peptide 42 pg/mL (0-124) Total Protein 7.7 g/dL (6.4-8.2) Albumin 4.1 g/dL (3.4-5.0) Albumin/Globulin Ratio 1.1 (1.0-1.7) O2 Saturation 94 % (92-99) Arterial Blood pH 7.41 (7.35-7.45) Arterial Blood pCO2 at Patient Temp 42 mmHg (35-46) Arterial Blood pO2 at Patient Temp 67 mmHg (65-108) Arterial Blood HCO3 26 mmol/L (21-28) Arterial Blood Base Excess 1 mmol/L (-3-3) Oxyhemoglobin 93.0 % Methemoglobin 0.5 % (0.0-1.9) Carbon Monoxide, Quantitative 0.7 % (0.0-1.9) FiO2 3.5l nc D-Dimer (Skylar) 0.37 ug/mlFEU (0.00-0.50) Medications Active Scripts Medications Dose Route/Sig Max Daily Dose Days Date Category Hydrochlorothiazide Tablet (Hydrochlorothiazide) 25 Mg Tablet 1 Tab PO DAILY 02/08/18 Reported Multivitamins (Multivitamin) 1 Each Tablet 1 Tab PO DAILY 02/08/18 Reported Amlodipine Besylate 10 Mg Tablet 10 Mg PO DAILY 02/08/18 Reported Aspir-Low (Aspirin) 81 Mg Tablet.dr 1 Tab PO DAILY 02/08/18 Reported Pravastatin Sodium 40 Mg Tablet 1 Tab PO QHS 02/08/18 Reported Impression . FULL NOTE DICTATED SEE ORDERS RULE OUT PE CTA ORDERS CANCEL V/Q SCAN JAMARI BAZAN MD Nov 17, 2020 09:09
[2020-11-17] MEDS: MULTIVITAMIN with MINERAL TABLET. PO SCH (09:30)
[2020-11-17] MEDS: ASPIRIN ENTERIC COATED 81 MG TABLET.DR. PO SCH (09:30)
[2020-11-17] MEDS: POTASSIUM CHLORIDE 20 MEQ TABLET.ER. PO SCH (09:30)
[2020-11-17] MEDS: hydroCHLOROthiazide 25 MG TABLET PO SCH (09:30)
[2020-11-17] MEDS: PANTOPRAZOLE 40 MG TABLET.DR. PO SCH (09:32)
[2020-11-17] MEDS: IPRATROPIUM/ALBUTEROL 20/100mcg/INH INHALER. INH SCH ×4 (09:32→20:00)
--- NOTE | 2020-11-17 09:32 | PDOC2 ---
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 Lerma SOURCE Source: Chart review, Patient HISTORY OF PRESENT ILLNESS HISTORY OF PRESENT ILLNESS This is a 75 yo male who presented secondary to cough, congestion, shortness of breath, and chest tightness. Patient reports he initially began with nasal congestion and cough. He then developed tightness in his central chest. No dizziness,diaphoresis, palpitations, LE edema, or fevers. PAST MEDICAL HISTORY Cardiovascular: HTN, Hyperlipidemia CENTRAL NERVOUS SYSTEM: TIA PAST SURGICAL HISTORY Past Surgical History: No pertinent history FAMILY HISTORY Family History: Hypertension, Other (prostate CA) SOCIAL HISTORY Smoke: <1 pack per day ALCOHOL: occassional Drugs: None CURRENT MEDICATIONS CURRENT MEDICATIONS Current Medications Medications (Trade) Dose Ordered Sig/Jeet Route PRN Reason Start Time Stop Time Status Last Admin Dose Admin Methylprednisolone Sodium Succinate (SOLU-Medrol 125MG VIAL) 125 mg 1X ONCE IV 11/16/20 13:30 11/16/20 13:31 DC 11/16/20 14:15 Albuterol/ Ipratropium (Duoneb) 3 ml 1X ONCE NEB 11/16/20 14:45 11/16/20 14:46 DC 11/16/20 14:56 Clonidine HCl (Catapres) 0.1 mg PRN Q6HRS PRN PO SBP>160 OR DBP>90 11/16/20 17:30 11/17/20 01:33 Enoxaparin Sodium (Lovenox 40mg Syringe) 40 mg Q24H SQ 11/16/20 21:00 11/16/20 21:59 Ceftriaxone Sodium (Rocephin) 1 gm Q24H IVP 11/16/20 18:00 11/16/20 21:58 Potassium Chloride (Klor-Con) 40 meq 1X ONCE PO 11/16/20 18:00 11/16/20 18:01 DC 11/16/20 21:51 Atorvastatin Calcium (Lipitor) 10 mg QHS PO 11/16/20 21:00 11/16/20 21:52 Methylprednisolone Sodium Succinate (SOLU-Medrol 125MG VIAL) 80 mg Q8HRS IV 11/16/20 22:00 11/17/20 06:09 Azithromycin 500 mg/Sodium Chloride 250 ml @ 250 mls/hr 1X ONCE IV 11/16/20 18:00 11/16/20 18:59 DC 11/16/20 21:57 ALLERGIES ALLERGIES: Coded Allergies: No Known Drug Allergies (Unverified , 02/08/18) ROS Review of System 14 point ROS conducted with pertinent positives noted above in HPI PHYSICAL EXAM General: Alert, Oriented X3, Cooperative, No acute distress HEENT: Atraumatic Lungs: Other (diminished ) Heart: Regular rate Abdomen: Soft, No tenderness Extremities: No edema, Normal pulses Skin: No significant lesion Neuro: Normal speech, Sensation intact Psych/Mental Status: Mental status NL, Other (flat affect ) MUSCULOSKELETAL: Osteoarthritic changes both hands VITALS/I&O VITALS/I&O: Vital Signs Date Time Temp Pulse Resp B/P (MAP) Pulse Ox O2 Delivery O2 Flow Rate FiO2 11/17/20 07:00 98.3 78 17 139/83 (101) 95 Room Air 98.3 11/17/20 03:00 4.0 I & O 11/16/20 11/16/20 11/17/20 15:00 23:00 07:00 Intake Total 250 ml Output Total 400 ml 550 ml Balance -150 ml -550 ml LABS Lab: Laboratory Tests Test 11/16/20 14:05 11/16/20 18:15 11/16/20 18:45 11/17/20 07:10 White Blood Count 10.8 x10^3/uL (4.0-11.0) 12.2 x10^3/uL (4.0-11.0) H Red Blood Count 4.82 x10^6/uL (4.30-5.70) 4.89 x10^6/uL (4.30-5.70) Hemoglobin 14.3 g/dL (13.0-17.5) 14.0 g/dL (13.0-17.5) Hematocrit 43.1 % (39.0-53.0) 44.0 % (39.0-53.0) Mean Corpuscular Volume 89 fL (79-100) 90 fL (79-100) Mean Corpuscular Hemoglobin 30 pg (25-35) 29 pg (25-35) Mean Corpuscular Hemoglobin Concent 33 g/dL (31-37) 32 g/dL (31-37) Red Cell Distribution Width 13.5 % (11.5-14.5) 13.6 % (11.5-14.5) Platelet Count 203 x10^3/uL (140-400) 208 x10^3/uL (140-400) Neutrophils (%) (Auto) 81 % (31-73) H 94 % (31-73) H Lymphocytes (%) (Auto) 8 % (24-48) L 4 % (24-48) L Monocytes (%) (Auto) 7 % (0-9) 1 % (0-9) Eosinophils (%) (Auto) 2 % (0-3) 0 % (0-3) Basophils (%) (Auto) 1 % (0-3) 0 % (0-3) Neutrophils # (Auto) 8.8 x10^3/uL (1.8-7.7) H 11.5 x10^3/uL (1.8-7.7) H Lymphocytes # (Auto) 0.9 x10^3/uL (1.0-4.8) L 0.5 x10^3/uL (1.0-4.8) L Monocytes # (Auto) 0.8 x10^3/uL (0.0-1.1) 0.2 x10^3/uL (0.0-1.1) Eosinophils # (Auto) 0.3 x10^3/uL (0.0-0.7) 0.0 x10^3/uL (0.0-0.7) Basophils # (Auto) 0.1 x10^3/uL (0.0-0.2) 0.0 x10^3/uL (0.0-0.2) Sodium Level 140 mmol/L (136-145) 141 mmol/L (136-145) Potassium Level 3.4 mmol/L (3.5-5.1) L 4.3 mmol/L (3.5-5.1) Chloride Level 101 mmol/L (98-107) 104 mmol/L (98-107) Carbon Dioxide Level 31 mmol/L (21-32) 31 mmol/L (21-32) Anion Gap 8 (6-14) 6 (6-14) Blood Urea Nitrogen 9 mg/dL (8-26) 13 mg/dL (8-26) Creatinine 1.0 mg/dL (0.7-1.3) 1.0 mg/dL (0.7-1.3) Estimated GFR (Cockcroft-Gault) 88.6 88.6 BUN/Creatinine Ratio 9 (6-20) Glucose Level 128 mg/dL (70-99) H 157 mg/dL (70-99) H Calcium Level 8.8 mg/dL (8.5-10.1) 8.5 mg/dL (8.5-10.1) Total Bilirubin 0.9 mg/dL (0.2-1.0) Aspartate Amino Transferase (AST) 23 U/L (15-37) Alanine Aminotransferase (ALT) 36 U/L (16-63) Alkaline Phosphatase 63 U/L (46-116) Troponin I Quantitative < 0.017 ng/mL (0.000-0.055) < 0.017 ng/mL (0.000-0.055) VS-Qqj-I-Type Natriuretic Peptide 42 pg/mL (0-124) Total Protein 7.7 g/dL (6.4-8.2) Albumin 4.1 g/dL (3.4-5.0) Albumin/Globulin Ratio 1.1 (1.0-1.7) O2 Saturation 94 % (92-99) Arterial Blood pH 7.41 (7.35-7.45) Arterial Blood pCO2 at Patient Temp 42 mmHg (35-46) Arterial Blood pO2 at Patient Temp 67 mmHg (65-108) Arterial Blood HCO3 26 mmol/L (21-28) Arterial Blood Base Excess 1 mmol/L (-3-3) Oxyhemoglobin 93.0 % Methemoglobin 0.5 % (0.0-1.9) Carbon Monoxide, Quantitative 0.7 % (0.0-1.9) FiO2 3.5l nc D-Dimer (Skylar) 0.37 ug/mlFEU (0.00-0.50) Platelet Estimate Pending Laboratory Tests 11/16/20 14:05 11/17/20 07:10 Laboratory Tests 11/16/20 14:05 11/17/20 07:10 ASSESSMENT/PLAN ASSESSMENT/PLAN 1. Acute respiratory failure with AECOPD, URI. low grade fevers. Nt Pro BNP 46 and CXR without vascular congestion. Doubt overt HF 2. Chest tightness; most probably secondary to above. AMI ruled out 3. Accelerated hypertension; better controlled 4. Tobaccoism; discussed/encouraged cessation 5. PUI; COVID negative Recommendations Echo ordered ASA Lipids Could consider outpatient ischemic evaluation Lung optimization Supportive care GELY MORRISON MD 11/17/20 1850: CARDIAC CONSULT ASSESSMENT/PLAN ASSESSMENT/PLAN The patient was seen and interviewed as well as examined at the bedside. The chart was reviewed. The case was discussed. Agree with the plan of care. GENE RUEDA APRN Nov 17, 2020 09:32 GELY MORRISON MD Nov 17, 2020 18:50
[2020-11-17 09:57] LABS: % BANDS 3 % (0-9); % LYMPHS 5 % (24-48); % MONOS 1 % (0-10); % SEGS 91 % (35-66); PLT ESTIMATE ADEQUATE (ADEQUATE)
[2020-11-17 11:00] VITALS: BP 127/82
[2020-11-17] MEDS ORDERED: CONTRAST GIVEN. MC PRN (13:45)
[2020-11-17] MEDS ORDERED: IOHEXOL 350 MG/ML 100 ML VIAL. IV ONE (13:45)
--- NOTE | 2020-11-17 14:20 | NUR ---
SS following for discharge planning. SS reviewed pt chart and discussed with pt RN. Pt is currently requiring oxygen at two liters nasal canula. Pt has no home oxygen. COVID19 negative. Pt on IV Rocephin. CT of chest today. SS will continue to follow for discharge planning.
[2020-11-17 15:30] VITALS: BP 127/81
--- NOTE | 2020-11-17 16:31 | RAD ---
CTA scan of the Chest with Contrast (Pulmonary Embolism protocol) 11/17/2020 Clinical History: Shortness of breath. Technique: After the intravenous administration of 100 and cc of Omnipaque 350, contiguous, 0.625 mm axial sections were obtained through the chest. 2 mm axial and 3D MIP coronal and sagittal reconstru cted images were obtained. One or more of the following individualized dose reduction techniques were utilized for this study: 1. Automated exposure control. 2. Adjustment of the mA and/or kV according to patient size. 3. Use of iterative reconstruction technique. Findings: Comparison is made to portable chest radiograph dated 11/16/2020. No filling defect is seen within the major branches of either pulmonary artery. There is no CT eviden ce of pulmonary embolism. The heart is normal in size. Atherosclerotic calcification of the thoracic aorta is seen. The thoracic aorta is tortuous but tapers normally. Elevation right hemidiaphragm is a gain noted. Dependent subsegmental atelectasis is seen involving both lower lobes, right greater than left. A 1 c m calcified granuloma seen involving the right lower lobe. No area of consolidation is seen. No pneum othorax or pleural effusion is noted. Impression: There is no CT evidence of pulmonary embolism. Electronically signed by: William Chance MD (11/17/2020 4:29 PM) [id number]
[2020-11-17] MEDS: cefTRIAXone IV Push 1 GM VIAL. IVP SCH (17:26)
[2020-11-17 19:00] VITALS: BP 127/70
[2020-11-17] MEDS: LACTOBACILLUS RHAMNOSUS GG 1 CAPSULE. PO SCH (21:14)
[2020-11-17] MEDS: ATORVASTATIN CALCIUM 10 MG TABLET. PO SCH (21:14)
[2020-11-17] MEDS: ENOXAPARIN 40 MG/0.4 ML SYRINGE. SQ SCH (21:16)
[2020-11-17 23:00] VITALS: BP 135/77
--- NOTE | 2020-11-17 23:33 | CONS ---
DATE OF CONSULTATION: 11/17/2020 ATTENDING PHYSICIAN: Adebayo Lerma MD. CONSULTING PHYSICIAN: Maryellen Selby MD. REASON FOR CONSULTATION: The patient is seen in pulmonary consultation at the request of Dr. Lerma for increasing shortness of air. HISTORY OF PRESENT ILLNESS: The patient is a 75-year-old that has a history of tobacco use, smokes on a daily basis, was concerned about the possibility of having SARS-CoV-2. He went to [facility], was found to have decreased saturation, presented to the Emergency Room for further evaluation and management. Over the last several days, the patient has had some chest tightness, wheezing, cough; mostly nonproductive. He was admitted. I was asked to see him in consultation. There is no prior history of COPD diagnosis. He has not experienced recurrent bouts of bronchitis. There is no prior history of DVT or pulmonary embolism. He has not had any long car rides. He has not been on a plane. Denies fever, chills or night sweats. PAST MEDICAL HISTORY: Hypertension, hyperlipidemia. FAMILY HISTORY: Prostate cancer. PAST SURGICAL HISTORY: None. SOCIAL HISTORY: Smokes less than 1 pack of cigarettes a day. Worked at the [employer], is currently working as a server security administrator. REVIEW OF SYSTEMS: CONSTITUTIONAL: No fever or chills. EYES: No change in visual acuity. HENT: No nasal congestion, sore throat. PULMONARY: As indicated above. CARDIOVASCULAR: As indicated above, no angina type of discomfort. GASTROINTESTINAL: No nausea, vomiting, or diarrhea. GENITOURINARY: No dysuria or frequency. MUSCULOSKELETAL: No localized muscle aches or joint pains. SKIN: No new skin rashes. NEUROLOGIC: No headaches, diplopia or blurred vision. CURRENT MEDICATIONS: List was reviewed. PHYSICAL EXAMINATION: VITAL SIGNS: Stable. O2 saturation greater than 92%, currently on 2 liters. HEENT: Eyes, the sclerae were nonicteric. NECK: Jugular venous distention was not elevated. No lymphadenopathy. CHEST: Full expansion. LUNGS: Adequate flow with no wheezes. CARDIOVASCULAR: Regular rate and rhythm with S1, S2, no S3. ABDOMEN: Soft, nontender, nondistended. EXTREMITIES: No clubbing, cyanosis or edema. NEUROLOGIC: The patient was awake, alert, following commands. A detailed neuro exam was not performed. LABORATORY DATA: Reviewed. Arterial blood gas pH of 7.41, PaCO2 of 42, pO2 of 67 on 3.5 liters. White count was normal. Electrolytes were noted. BUN and creatinine were normal. Troponin was not elevated. D-dimer was not elevated. Serology for SARS-CoV-2 was negative. IMPRESSION: 1. Progressive dyspnea and atypical chest pain secondary to acute exacerbation of chronic obstructive pulmonary disease. 2. Atypical chest pain. 3. Tobacco dependent. The patient is up to date on SARS-CoV-2. 4. Hypertension. 5. Hyperlipidemia. PLAN: 1. There was some concern from the hospice regarding the possibility of PE, V/Q scan was ordered, I will discontinue V/Q scan and obtain CT angiogram to rule out PE. In addition, I reviewed the patient's chest x-ray, there is possible right upper lobe density, will obtain CT angiogram to rule out the possibility of early lung cancer. 2. Plan to continue current steroids. 3. Nebulized treatments. 4. Patient instructed on the importance of discontinuing tobacco use. 5. Continue home medications. I do appreciate the privilege in sharing in the patient's care. LEYDI/BABAR DR: Juan TID: [id number]
[2020-11-18] MEDS: IPRATRPIUM/ALBUTEROL 0.5/2.5MG 3 ML NEBU. NEB SCH ×3 (02:00→11:12)
[2020-11-18 03:00] VITALS: BP 100/57
[2020-11-18] MEDS: methylPREDNISolone SOD SUCC PF 125 MG/2 ML VIAL. IV SCH ×2 (06:18→14:00)
[2020-11-18 06:53] LABS: BARBITURATES NEG (NEG); BENZODIAZEPINES NEG (NEG); CANNABINOIDS NEG (NEG); COCAINE NEG (NEG); METHADONE NEG (NEG); OPIATES NEG (NEG); PHENCYCLIDINE NEG (NEG)
[2020-11-18 06:54] LABS: AMPHETAMINE/METHAMPHETAMINE NEG (NEG)
[2020-11-18 07:00] VITALS: BP 132/76
[2020-11-18] MEDS: BUDESONIDE 0.5 MG/2 ML NEBU. NEB SCH (07:22)
[2020-11-18] MEDS: hydroCHLOROthiazide 25 MG TABLET PO SCH (08:06)
[2020-11-18] MEDS: ASPIRIN ENTERIC COATED 81 MG TABLET.DR. PO SCH (08:06)
[2020-11-18] MEDS: MULTIVITAMIN with MINERAL TABLET. PO SCH (08:06)
[2020-11-18] MEDS: LACTOBACILLUS RHAMNOSUS GG 1 CAPSULE. PO SCH (08:06)
[2020-11-18] MEDS: PANTOPRAZOLE 40 MG TABLET.DR. PO SCH (08:07)
[2020-11-18] MEDS: POTASSIUM CHLORIDE 20 MEQ TABLET.ER. PO SCH (08:07)
[2020-11-18 08:08] LABS: CHOLESTEROL/HDL RATIO 2.7
--- NOTE | 2020-11-18 10:16 | PDOC ---
PULMONARY PROGRESS NOTES DATE: 11/18/20 TIME: 10:16 Subjective remains on 2 liters NC no overnight concerns no SOA or cough Vitals Vital Signs Date Time Temp Pulse Resp B/P (MAP) Pulse Ox O2 Delivery O2 Flow Rate FiO2 11/18/20 08:07 82 132/76 11/18/20 07:22 92 Nasal Cannula 2.0 11/18/20 07:00 97.5 19 97.5 ROS: No Nausea, No Chest Pain, No Abdominal Pain, No Increase Cough General: Alert, Oriented X4 Lungs: Clear Cardiovascular: S1 Abdomen: Soft Neuro Exam: Alert Extremities: No Edema Labs Laboratory Tests Test 11/16/20 14:05 11/16/20 15:46 11/16/20 18:15 11/16/20 18:45 White Blood Count 10.8 x10^3/uL (4.0-11.0) Red Blood Count 4.82 x10^6/uL (4.30-5.70) Hemoglobin 14.3 g/dL (13.0-17.5) Hematocrit 43.1 % (39.0-53.0) Mean Corpuscular Volume 89 fL (79-100) Mean Corpuscular Hemoglobin 30 pg (25-35) Mean Corpuscular Hemoglobin Concent 33 g/dL (31-37) Red Cell Distribution Width 13.5 % (11.5-14.5) Platelet Count 203 x10^3/uL (140-400) Neutrophils (%) (Auto) 81 % (31-73) Lymphocytes (%) (Auto) 8 % (24-48) Monocytes (%) (Auto) 7 % (0-9) Eosinophils (%) (Auto) 2 % (0-3) Basophils (%) (Auto) 1 % (0-3) Neutrophils # (Auto) 8.8 x10^3/uL (1.8-7.7) Lymphocytes # (Auto) 0.9 x10^3/uL (1.0-4.8) Monocytes # (Auto) 0.8 x10^3/uL (0.0-1.1) Eosinophils # (Auto) 0.3 x10^3/uL (0.0-0.7) Basophils # (Auto) 0.1 x10^3/uL (0.0-0.2) Sodium Level 140 mmol/L (136-145) Potassium Level 3.4 mmol/L (3.5-5.1) Chloride Level 101 mmol/L (98-107) Carbon Dioxide Level 31 mmol/L (21-32) Anion Gap 8 (6-14) Blood Urea Nitrogen 9 mg/dL (8-26) Creatinine 1.0 mg/dL (0.7-1.3) Estimated GFR (Cockcroft-Gault) 88.6 BUN/Creatinine Ratio 9 (6-20) Glucose Level 128 mg/dL (70-99) Calcium Level 8.8 mg/dL (8.5-10.1) Total Bilirubin 0.9 mg/dL (0.2-1.0) Aspartate Amino Transf (AST/SGOT) 23 U/L (15-37) Alanine Aminotransferase (ALT/SGPT) 36 U/L (16-63) Alkaline Phosphatase 63 U/L (46-116) Troponin I Quantitative < 0.017 ng/mL (0.000-0.055) < 0.017 ng/mL (0.000-0.055) ED-Ffz-Y-Type Natriuretic Peptide 42 pg/mL (0-124) Total Protein 7.7 g/dL (6.4-8.2) Albumin 4.1 g/dL (3.4-5.0) Albumin/Globulin Ratio 1.1 (1.0-1.7) SARS-CoV-2 RNA (ALEJANDRO) Negative (Negative) O2 Saturation 94 % (92-99) Arterial Blood pH 7.41 (7.35-7.45) Arterial Blood pCO2 at Patient Temp 42 mmHg (35-46) Arterial Blood pO2 at Patient Temp 67 mmHg (65-108) Arterial Blood HCO3 26 mmol/L (21-28) Arterial Blood Base Excess 1 mmol/L (-3-3) Oxyhemoglobin 93.0 % Methemoglobin 0.5 % (0.0-1.9) Carbon Monoxide, Quantitative 0.7 % (0.0-1.9) FiO2 3.5l nc D-Dimer (Skylar) 0.37 ug/mlFEU (0.00-0.50) Test 11/17/20 07:10 11/18/20 03:00 11/18/20 06:45 White Blood Count 12.2 x10^3/uL (4.0-11.0) Red Blood Count 4.89 x10^6/uL (4.30-5.70) Hemoglobin 14.0 g/dL (13.0-17.5) Hematocrit 44.0 % (39.0-53.0) Mean Corpuscular Volume 90 fL (79-100) Mean Corpuscular Hemoglobin 29 pg (25-35) Mean Corpuscular Hemoglobin Concent 32 g/dL (31-37) Red Cell Distribution Width 13.6 % (11.5-14.5) Platelet Count 208 x10^3/uL (140-400) Neutrophils (%) (Auto) 94 % (31-73) Lymphocytes (%) (Auto) 4 % (24-48) Monocytes (%) (Auto) 1 % (0-9) Eosinophils (%) (Auto) 0 % (0-3) Basophils (%) (Auto) 0 % (0-3) Neutrophils # (Auto) 11.5 x10^3/uL (1.8-7.7) Lymphocytes # (Auto) 0.5 x10^3/uL (1.0-4.8) Monocytes # (Auto) 0.2 x10^3/uL (0.0-1.1) Eosinophils # (Auto) 0.0 x10^3/uL (0.0-0.7) Basophils # (Auto) 0.0 x10^3/uL (0.0-0.2) Segmented Neutrophils % 91 % (35-66) Band Neutrophils % 3 % (0-9) Lymphocytes % 5 % (24-48) Monocytes % 1 % (0-10) Platelet Estimate Adequate (ADEQUATE) Large Platelets Few Sodium Level 141 mmol/L (136-145) Potassium Level 4.3 mmol/L (3.5-5.1) Chloride Level 104 mmol/L (98-107) Carbon Dioxide Level 31 mmol/L (21-32) Anion Gap 6 (6-14) Blood Urea Nitrogen 13 mg/dL (8-26) Creatinine 1.0 mg/dL (0.7-1.3) Estimated GFR (Cockcroft-Gault) 88.6 Glucose Level 157 mg/dL (70-99) Calcium Level 8.5 mg/dL (8.5-10.1) Urine Opiates Screen Neg (NEG) Urine Methadone Screen Neg (NEG) Urine Barbiturates Neg (NEG) Urine Phencyclidine Screen Neg (NEG) Urine Amphetamine/Methamphetamine Neg (NEG) Urine Benzodiazepines Screen Neg (NEG) Urine Cocaine Screen Neg (NEG) Urine Cannabinoids Screen Neg (NEG) Urine Ethyl Alcohol Neg (NEG) Triglycerides Level 130 mg/dL (0-150) Cholesterol Level 183 mg/dL (0-200) LDL Cholesterol, Calculated 90 mg/dL (0-100) VLDL Cholesterol, Calculated 26 mg/dL (0-40) Non-HDL Cholesterol Calculated 116 mg/dL (0-129) HDL Cholesterol 67 mg/dL (40-60) Cholesterol/HDL Ratio 2.7 Laboratory Tests Test 11/18/20 03:00 11/18/20 06:45 Urine Opiates Screen Neg (NEG) Urine Methadone Screen Neg (NEG) Urine Barbiturates Neg (NEG) Urine Phencyclidine Screen Neg (NEG) Urine Amphetamine/Methamphetamine Neg (NEG) Urine Benzodiazepines Screen Neg (NEG) Urine Cocaine Screen Neg (NEG) Urine Cannabinoids Screen Neg (NEG) Urine Ethyl Alcohol Neg (NEG) Triglycerides Level 130 mg/dL (0-150) Cholesterol Level 183 mg/dL (0-200) LDL Cholesterol, Calculated 90 mg/dL (0-100) VLDL Cholesterol, Calculated 26 mg/dL (0-40) Non-HDL Cholesterol Calculated 116 mg/dL (0-129) HDL Cholesterol 67 mg/dL (40-60) Cholesterol/HDL Ratio 2.7 Medications Active Scripts Medications Dose Route/Sig Max Daily Dose Days Date Category Hydrochlorothiazide Tablet (Hydrochlorothiazide) 25 Mg Tablet 1 Tab PO DAILY 02/08/18 Reported Multivitamins (Multivitamin) 1 Each Tablet 1 Tab PO DAILY 02/08/18 Reported Amlodipine Besylate 10 Mg Tablet 10 Mg PO DAILY 02/08/18 Reported Aspir-Low (Aspirin) 81 Mg Tablet.dr 1 Tab PO DAILY 02/08/18 Reported Pravastatin Sodium 40 Mg Tablet 1 Tab PO QHS 02/08/18 Reported Impression . IMPRESSION: 1. Progressive dyspnea and atypical chest pain secondary to acute exacerbation of chronic obstructive pulmonary disease.--improved 2. Atypical chest pain. 3. Tobacco dependent. The patient is up to date on SARS-CoV-2. 4. Hypertension. 5. Hyperlipidemia. CT chest Dependent subsegmental atelectasis is seen involving both lower lobes, right greater than left. A 1 cm calcified granuloma seen involving the right lower lobe. No area of consolidation is seen. No pneumothorax or pleural effusion is noted. Impression: There is no CT evidence of pulmonary embolism. Plan . Updated 11/18/20 Continue supplemental oxygen to keep sats above 92%, on 2 liters NC 6 min walk prior to discharge CT chest reviewed Follow Cardiology recs -- Echo with preserved LV systolic function NEBS Steroids to po with taper ongoing education on discontinuing tobacco use. DVT/GI PPX D/W RN and Dr. Ventura molina to DC home today after 6 min walk PLAN: 11/17/20 1. There was some concern from the hospice regarding the possibility of PE, V/Q scan was ordered, I will discontinue V/Q scan and obtain CT angiogram to rule out PE. In addition, I reviewed the patient's chest x-ray, there is possible right upper lobe density, will obtain CT angiogram to rule out the possibility of early lung cancer. 2. Plan to continue current steroids. 3. Nebulized treatments. 4. Patient instructed on the importance of discontinuing tobacco use. 5. Continue home medications. JAMARI BAZAN MD Nov 18, 2020 10:16
--- NOTE | 2020-11-18 10:27 | NUR ---
JACKSON following. Discussed with RN, pt from home, 2L (does not use oxygen at home), cardiac diet, COVID-19 negative. Pt wanting to go home, 6 minute walk ordered - awaiting result. JACKSON will continue to follow. Addendum: 11/18/20 at 1231 by NATALIE PAZ Pt requiring 2L oxygen with exertion. JACKSON met with pt, pt agreeable, does not have a preference of provider. Pt ready to go home. Oxygen referral sent to [facility], awaiting acceptance decision and approval to melo yarbrough. MOODY notified. Addendum: 11/18/20 at 1406 by NATALIE PAZ Rotnoelle yarbrough provided to pt. RN notified.
[2020-11-18 11:00] VITALS: BP 121/61
--- NOTE | 2020-11-18 11:38 | PDOC ---
[employer] PROGRESS NOTE Date of Service DOS: DATE: 11/18/20 TIME: 11:38 Chief Complaint Chief Complaint Respiratory failure Mild tobacco exposure (he he states he did not smoke a lot?) History of dust exposure History of chemical exposure History of asbestos exposure Hyperlipidemia COPD History of Present Illness History of Present Illness 11/18/2020 Patient seen and examined Discussed with RN Discussed with case management Patient wants to go home We will discharge and I left a prescription for oxygen per nasal cannula 11/18/2019 Patient seen and examined You can hear audible wheezes at the bedside He is on oxygen per nasal cannula He appears depressed and weak Soft-spoken Chart reviewed Discussed with RN VQ pending Cardiology and pulmonary are consulted Vitals/I&O Vitals/I&O: Vital Signs Date Time Temp Pulse Resp B/P (MAP) Pulse Ox O2 Delivery O2 Flow Rate FiO2 11/18/20 11:12 90 Room Air 11/18/20 11:00 98.2 82 20 121/61 (81) 2.0 98.2 I & O 0 11/17/20 11/17/20 11/18/20 15:00 23:00 07:00 Intake Total 600 ml 120 ml Output Total 550 ml Balance 600 ml -550 ml 120 ml Physical Exam General: Alert, Oriented X3, Cooperative, No acute distress Heart: Regular rate Lungs: Wheezing, Crackles Abdomen: Soft, No tenderness Extremities: No edema, Normal pulses Skin: No significant lesion Labs Labs: Laboratory Tests Test 11/18/20 03:00 11/18/20 06:45 Urine Opiates Screen Neg (NEG) Urine Methadone Screen Neg (NEG) Urine Barbiturates Neg (NEG) Urine Phencyclidine Screen Neg (NEG) Urine Amphetamine/Methamphetamine Neg (NEG) Urine Benzodiazepines Screen Neg (NEG) Urine Cocaine Screen Neg (NEG) Urine Cannabinoids Screen Neg (NEG) Urine Ethyl Alcohol Neg (NEG) Triglycerides Level 130 mg/dL (0-150) Cholesterol Level 183 mg/dL (0-200) LDL Cholesterol, Calculated 90 mg/dL (0-100) VLDL Cholesterol, Calculated 26 mg/dL (0-40) Non-HDL Cholesterol Calculated 116 mg/dL (0-129) HDL Cholesterol 67 mg/dL (40-60) Cholesterol/HDL Ratio 2.7 Assessment and Plan Assessmemt and Plan Problems Medical Problems: (1) Hypoxia Status: Acute (2) Person under investigation for COVID-19 Status: Acute Discharge see dictation please Comment Review of Relevant I have reviewed the following items reyna (where applicable) has been applied. Medications: Current Medications Medications (Trade) Dose Ordered Sig/Jeet Route PRN Reason Start Time Stop Time Status Last Admin Dose Admin Lactobacillus Rhamnosus (Culturelle) 1 cap BID PO 11/17/20 21:00 11/18/20 08:06 Iohexol (Omnipaque 350 Mg/ml) 100 ml 1X ONCE IV 11/17/20 13:45 11/17/20 13:46 DC 11/17/20 13:45 Justifications for Admission Other Justification acute hypoxic resp failure NIKHIL LYNN III DO Nov 18, 2020 11:38
[2020-11-18] MEDS ORDERED: POTA20TA4 PO (11:43)
[2020-11-18] MEDS ORDERED: IPRA4AER INH (11:43)
[2020-11-18] MEDS ORDERED: PANT40TA77 PO (11:43)
--- NOTE | 2020-11-18 12:09 | CARD ---
MR#: [id number] Date of Study: 11/17/2020 Ordering Physician: GEORGI TAO, Referring Physician: GEORGI TAO, Tech: Carri Clancy, [facility] APPROVED REPORT EXAM: Two-dimensional and M-mode echocardiogram with Doppler and color Doppler. Other Information Quality : AverageHR: 80bpm INDICATION Chest Pain 2D DIMENSIONS RVDd3.7 (2.9-3.5cm)Left Atrium(2D)3.4 (1.6-4.0cm) IVSd1.0 (0.7-1.1cm)Aortic Root(2D)3.6 (2.0-3.7cm) LVDd5.4 (3.9-5.9cm)LVOT Diameter2.2 (1.8-2.4cm) PWd1.1 (0.7-1.1cm)LVDs3.0 (2.5-4.0cm) FS (%) 45.3 %SV108.8 ml Aortic Valve AoV Peak Benito.164.0cm/sAoV VTI25.1cm AO Peak GR.10.8mmHgLVOT Peak Benito.134.4cm/s LVOT VTI 23.97cmAO Mean GR.5mmHg EDIL (VMAX)2.54ck7KFX (VTI)3.51cm2 Mitral Valve MV E Brsxmfmj91.6cm/sMV DECEL [id number] MV A Cmbnkjfa60.4cm/sMV [id number] E/A Ratio0.7MVA (PHT)2.21cm2 TDI E/Lateral E'5.5E/Medial E'6.9 Pulmonary Valve PV Peak Inlwpdiw17.0cm/sPV Peak Grad.3mmHg Tricuspid Valve TR P. Pplixlhh686ee/sRAP [id number] TR Peak Gr.18cwMfYKAE75cwDc Pulmonary Vein S1 Xpwnfobp09.7cm/sD2 Kwvshcrh72.4cm/s PVa [id number] LEFT VENTRICLE The left ventricle is normal size. There is mild concentric left ventricular hypertrophy. The left ve ntricular systolic function is normal and the ejection fraction is within normal range. The Ejection Fraction is 50-55%. There is normal LV segmental wall motion. Transmitral Doppler flow pattern is Gra de I-abnormal relaxation pattern. RIGHT VENTRICLE The right ventricle is normal size. There is normal right ventricular wall thickness. The right ventr icular systolic function is normal. ATRIA The left atrium size is normal. The right atrium size is normal. The interatrial septum is intact wit h no evidence for an atrial septal defect or patent foramen ovale as noted on 2-D or Doppler imaging. AORTIC VALVE The aortic valve is normal in structure and function. Doppler and Color Flow revealed trace aortic re gurgitation. There is no significant aortic valvular stenosis. Calculated aortic valve area is 3.10 c m2 with maximum pressure gradient of 12 mmHg and mean pressure gradient of 6 mmHg. MITRAL VALVE The mitral valve is normal in structure and function. There is no evidence of mitral valve prolapse. There is no mitral valve stenosis. Doppler and Color-flow revealed trace mitral regurgitation. TRICUSPID VALVE The tricuspid valve is normal in structure and function. Doppler and Color Flow revealed trace tricus pid regurgitation with an estimated PAP of 32 mmHg. There is no tricuspid valve stenosis. PULMONIC VALVE The pulmonic valve is not well visualized. Doppler and Color Flow revealed trace pulmonic valvular re gurgitation. GREAT VESSELS The aortic root is normal in size. The IVC is normal in size and collapses >50% with inspiration. PERICARDIAL EFFUSION There is no evidence of significant pericardial effusion. Critical Notification Critical Value: No <Conclusion> The left ventricle is normal size. The left ventricular systolic function is normal and the ejection fraction is within normal range. The Ejection Fraction is 50-55%. There is mild concentric left ventricular hypertrophy. Doppler and Color Flow revealed trace aortic regurgitation. There is no significant aortic valvular stenosis. Doppler and Color-flow revealed trace mitral regurgitation. Doppler and Color Flow revealed trace tricuspid regurgitation with an estimated PAP of 32 mmHg. Signed by : Evaristo Collazo MD Electronically Approved : 11/18/2020 12:08:54
--- NOTE | 2020-11-18 13:18 | DS ---
ADMISSION DIAGNOSES: Hypoxic respiratory failure, chronic obstructive pulmonary disease, tobacco abuse, obesity. DISCHARGE DIAGNOSES: Resolving respiratory failure, chronic obstructive pulmonary disease, history of dust exposure and chemical exposure and asbestos exposure, history of hyperlipidemia. CONSULTS: Pulmonary Medicine. PROCEDURES: None. HOSPITAL COURSE: The patient is a pleasant middle-aged male who presented with respiratory failure. He has no known COPD and also has some dust, chemical, and asbestos exposures in the past. He was admitted. We gave him empiric IV antibiotics. We gave oxygen, steroids, breathing treatments. I consulted Pulmonary. Today, I saw and examined him, he wants to go home. He is probably close to his baseline. We are going to try to get him home with close outpatient followup if okay with Pulmonary Medicine. DISPOSITION: Home. ACTIVITY: As tolerated. DIET: Low sodium. DISCHARGE MEDICATIONS: Combivent, Protonix 40 a day, potassium 20 a day, amlodipine 10 a day, aspirin 81 a day, hydrochlorothiazide 25 a day, multivitamins, and pravastatin 40 a day. Total time 32 minutes. FR[facility] DR: Ron TID: [id number]
--- NOTE | 2020-11-18 14:14 | PDOC ---
CARDIO Progress Notes Date and Time Date of Service 11/18/20 Time of Evaluation 1400 Subjective Subjective: No Chest Pain, No shortness of breath, No Palpitations, Other (breathing improved ) Vitals Vitals Vital Signs Date Time Temp Pulse Resp B/P (MAP) Pulse Ox O2 Delivery O2 Flow Rate FiO2 11/18/20 11:12 90 Room Air 11/18/20 11:00 98.2 82 20 121/61 (81) 2.0 98.2 Weight Weight [ ] Input and Output Intake and Output Intake and Output 11/18/20 07:00 Intake Total 720 ml Output Total 550 ml Balance 170 ml Intake Oral 720 ml Output Urine Total 550 ml # Voids 1 Laboratory Labs Laboratory Tests Test 11/18/20 03:00 11/18/20 06:45 Urine Opiates Screen Neg (NEG) Urine Methadone Screen Neg (NEG) Urine Barbiturates Neg (NEG) Urine Phencyclidine Screen Neg (NEG) Urine Amphetamine/Methamphetamine Neg (NEG) Urine Benzodiazepines Screen Neg (NEG) Urine Cocaine Screen Neg (NEG) Urine Cannabinoids Screen Neg (NEG) Urine Ethyl Alcohol Neg (NEG) Triglycerides Level 130 mg/dL (0-150) Cholesterol Level 183 mg/dL (0-200) LDL Cholesterol, Calculated 90 mg/dL (0-100) VLDL Cholesterol, Calculated 26 mg/dL (0-40) Non-HDL Cholesterol Calculated 116 mg/dL (0-129) HDL Cholesterol 67 mg/dL (40-60) Cholesterol/HDL Ratio 2.7 Microbiology Micro Microbiology 11/16/20 Blood Culture - Preliminary, Resulted NO GROWTH AFTER 1 DAY Physical Exam HEENT: Neck Supple W Full Motion Chest: Symmetric LUNGS: Other (diminished bases) Heart: S1S2, RRR, no jug vein distention Abdomen: Soft N/T Extremities: No Edema Neurology: alert, oriented, follow commands Assessment Assessment 1. Acute respiratory failure with AECOPD, URI. low grade fevers. Nt Pro BNP 46 and CXR without vascular congestion. Doubt overt HF 2. Chest tightness; most probably secondary to above. AMI ruled out. Echo with preserved LV systolic function 3. Accelerated hypertension; now controlled 4. Tobaccoism; discussed/encouraged cessation 5. PUI; COVID negative Recommendations ASA Will arrange outpatient ischemic evaluation Lung optimization Supportive care Follow up in our office with as scheduled. Justicifation of Admission Dx: Justifications for Admission: Justification of Admission Dx: Yes Comments: AE COPD, CHF GENE RUEDA APRN Nov 18, 2020 14:14
--- NOTE | 2020-11-18 15:30 | NUR ---
Discharge Note: Patient was discharged home with self care. Patients IV was discontinued without any complications per JENSEN. Patient qualified for home oxygen therefore, home oxygen was set up for patient by social work and patient was given a tank to take home. Patient was given discharge summary/instructions, follow-ups, prescriptions, and educational material. Patient did not have any further questions or concerns. Patient was taken down to the ER entrance via wheelchair with all personal belongings, accompanied by JENSEN Gates, where patients car was parked since he drove himself to the hospital. Patient was called at [phone] after he had left to make him aware of his cardiac appointment on at 0915am.
[2020-11-19] MEDS ORDERED: predniSONE 10 MG TABLET PO SCH (09:00)
== END 2020-11-18 15:30 | disposition home or self-care (01) ==
LOC: ER 13:03 → 6 SOUTH 14:50 → INTOOBSV 14:50
PROVIDERS: ADMIT Family Medicine; ATTEND Family Medicine
DX: J96.01 Acute respiratory failure with hypoxia (principal); Z20.822 Contact with and (suspected) exposure to COVID-19; J44.1 Chronic obstructive pulmonary disease with (acute) exacerbation; R07.89 Other chest pain; E66.9 Obesity, unspecified; F17.210 Nicotine dependence, cigarettes, uncomplicated; E78.5 Hyperlipidemia, unspecified; J98.11 Atelectasis; J06.9 Acute upper respiratory infection, unspecified; I10 Essential (primary) hypertension; D12.3 Benign neoplasm of transverse colon; Z77.090 Contact with and (suspected) exposure to asbestos; Z51.5 Encounter for palliative care; Z86.73 Personal history of transient ischemic attack (TIA), and cerebral infarction without residual deficits; Z79.82 Long term (current) use of aspirin; Z68.30 Body mass index [BMI] 30.0-30.9, adult; Z79.899 Other long term (current) drug therapy
CPT/HCPCS: 36415; 36600; 71045; 71275; 80048; 80053; 80061; 80307; 82805; 83880; 84484; 85007; 85025; 85379; 87040; 93005; 93306; 94618; 94640; 94760; 96365; 96372; 96375; 96376; 99285; G0378; J0456; J0696; J1650; J2930; J7050; J7626; Q9967; U0003; U0005; 96374; G0379; J7030